=== PATIENT | male | born 1975 | race Caucasian/White ===

== ENCOUNTER 2018-02-19 11:44 | Emergency (ER) | payer SELFPAY ==
[~2018-02-19] VITALS: Ht 165.1 cm; Wt 55.3 kg
[2018-02-19 11:53] VITALS: BP 127/102
--- NOTE | 2018-02-19 11:56 | NUR ---
PT AMBULATES TO BED 4
--- NOTE | 2018-02-19 12:05 | NUR ---
DR ZEPEDA EVALUATING AT BEDSIDE
--- NOTE | 2018-02-19 12:06 | NUR ---
42 YO M PT C/O RT KNEE PAIN RADIATING DOWN TO RT ANKLE AND FOOT. MONTSERRAT [place]. +REDNESS, -SWELLINNG. -DEFORMITY. AAOX4. GCS 15. CMS INTACT. RR EVEN AND UNLABORED. LUNGS CLEAR. ABD SOFT, NON-TENDER. ER MD ZEPEDA NOTIFIED. PT NEEDS MET. SAFETY PRECAUTIONS IN PLACE. WILL CONTINUE TO MONITOR.
[2018-02-19 12:16] VITALS: BP 127/102
--- NOTE | 2018-02-19 12:16 | NUR ---
Patient discharged with v/s stable. Written and verbal after care instructions given and explained. Patient verbalized understanding. Ambulatory with steady gait. All questions addressed prior to discharge. Advised to follow up with PMD.
== END 2018-02-19 12:16 | disposition home or self-care (01) ==
LOC: MED 11:44
DX: D68.8 Other specified coagulation defects (principal); F10.99 Alcohol use, unspecified with unspecified alcohol-induced disorder; I78.1 Nevus, non-neoplastic
CPT/HCPCS: 99281